=== PATIENT | female | born 1990 | race Caucasian/White ===

== ENCOUNTER 2017-02-06 18:57 | Emergency (ER) | payer OTHER ==
[~2017-02-06] VITALS: Ht 165.1 cm; Wt 63.5 kg
[~2017-02-06 18:57] MED LIST: NKHM
[2017-02-06] MEDS ORDERED: 'PARAFON FORTE500 M1 PO (19:28)
[2017-02-06] MEDS ORDERED: NAPROSYN500 MG PO (19:28)
== END 2017-02-06 21:27 | disposition home or self-care (01) ==
LOC: ED 18:57
DX: M62.838 Other muscle spasm (principal); M54.2 Cervicalgia; R03.0 Elevated blood-pressure reading, without diagnosis of hypertension; F17.200 Nicotine dependence, unspecified, uncomplicated; F10.10 Alcohol abuse, uncomplicated; Z88.2 Allergy status to sulfonamides; Z88.8 Allergy status to other drugs, medicaments and biological substances

== ENCOUNTER 2017-12-28 07:48 | Emergency (ER) | payer SELFPAY ==
[~2017-12-28] VITALS: Ht 165.1 cm; Wt 63.5 kg
[~2017-12-28 07:48] MED LIST changes: +'PARAFON FORTE500 M1 PO; +NAPROSYN500 MG PO
[2017-12-28 08:32] LABS: BASO % 0.2 % (0.0-1.0); EOS # 0.1 10*3/uL (0.0-0.4); EOS % 0.8 % (1.0-4.0); HEMATOCRIT 44.8 % (37.0-47.0); HEMOGLOBIN 14.9 g/dl (12.0-16.0); LYMPH # 1.7 10*3/uL (1.3-4.4); LYMPH % 18.5 % (27.0-41.0); MEAN CELL VOLUME 92.2 fl (81.0-99.0); MEAN CORPUSCULAR HGB 30.7 pg (27.0-31.0); MEAN CORPUSCULAR HGB CONC 33.3 g/dl (33.0-37.0); MEAN PLATELET VOLUME 8.9 fl (9.6-12.3); MONO % 10.5 % (3.0-9.0); NEUT # 6.3 10*3/uL (2.3-7.9); NEUT % 69.6 % (47.0-73.0); PLATELET COUNT AUTOMATED 275 10*3/uL (130-400); RED BLOOD COUNT 4.86 10*6/uL (4.10-5.10); RED CELL DISTRI WIDTH 13.9 % (0-14.5); WHITE BLOOD COUNT 9.1 10*3/uL (4.8-10.8)
[2017-12-28 08:47] LABS: ALKALINE PHOSPHATASE 54 U/L (45-117); BUN 17 mg/dl (7-24); CHLORIDE 107 mmol/L (98-107); CREATININE 0.64 mg/dL (0.55-1.02); LIPASE 168 U/L (73-393); POTASSIUM 4.2 mmol/L (3.5-5.1); SGOT/AST 12 IU/L (3-35); SGPT/ALT 19 U/L (12-78); SODIUM 138 mmol/L (136-145); TOTAL PROTEIN 7.9 gm/dL (6.4-8.2)
[2017-12-28 08:48] LABS: BETA-HCG, QUANT < 1.0 mIU/mL (1-3)
[2017-12-28] MEDS ORDERED: IBUPROFEN600 MG PO (09:51)
[2017-12-28] MEDS ORDERED: PHENERGAN25 M3 PO (09:51)
== END 2017-12-28 10:30 | disposition home or self-care (01) ==
LOC: ED 07:48
PROVIDERS: Emergency Medicine
DX: R51 Headache (principal); K52.9 Noninfective gastroenteritis and colitis, unspecified; Z88.2 Allergy status to sulfonamides

== ENCOUNTER 2019-01-23 17:16 | Emergency (ER) | payer MEDICAID ==
[~2019-01-23] VITALS: Ht 165.1 cm; Wt 68.0 kg
[~2019-01-23 17:16] MED LIST changes: +IBUPROFEN600 MG PO; +PHENERGAN25 M3 PO
[2019-01-23 17:35] LABS: BILIRUBIN NEGATIVE (NEGATIVE); BLOOD 2+ (NEGATIVE); CLARITY CLEAR (CLEAR); COLOR YELLOW (YELLOW); GLUCOSE NEGATIVE (NEGATIVE); KETONE NEGATIVE (NEGATIVE); LEUKO ESTERASE NEGATIVE (NEGATIVE); NITRITE NEGATIVE (NEGATIVE); PH 7.5 (5.0-9.0); SPECIFIC GRAVITY <= 1.005 (1.005-1.030); UROBILINOGEN 0.2 E.U./dl (0.2-1.0)
[2019-01-23] MEDS ORDERED: DOXYCYCLINE100 M3 PO (17:38)
[2019-01-23 17:43] LABS: BACTERIA 1+; EPITHELIAL CELLS 21-30; WBC 0-2 wbc/hpf (0-5)
== END 2019-01-23 18:12 | disposition home or self-care (01) ==
LOC: ED 17:16
PROVIDERS: Physician Assistant
DX: Z20.2 Contact with and (suspected) exposure to infections with a predominantly sexual mode of transmission (principal); Z88.2 Allergy status to sulfonamides